=== PATIENT | female | born 1980 | race Caucasian/White ===

== ENCOUNTER → 2019-06-28 | Outpatient (CLI) | payer OTHER ==
[~2019-06-28] VITALS: Ht 172.7 cm; Wt 86.2 kg
[~2019-06-28] MED LIST: ACIPHEX 20 MG T20 MG PO; KEFLEX500 M1 PO; LAMOTRIGINE150 MG PO; VITAMIN D50000 UNIT PO; ZOVIRAX200 MG PO; ZYRTEC10 M5 PO
--- NOTE | 2019-06-30 17:06 | PATH ---
[facility] [address] [place] [address] PATHOLOGY RPT PROCEDURE Name: TAYLOR SPAIN Room #: REG [facility].#: [id number] Admission: 06/28/19 Date of : 76 Discharge: Report #: [id number] Path Case #: [id number] [facility] Accession Number: [id number] . 01 Material submitted: . colon - POLYP AT SIGMOID COLON. Modifiers: sigmoid . 01 Clinical history: . GERD, melena . 02 Diagnosis: Polyp, at sigmoid colon, endoscopic biopsy: - Hyperplastic polyp and lymphoid aggregates. - Negative for dysplasia. (IUV:pit; 06/30/2019) QTP 06/30/2019 1408 Local . 02 Electronically signed: . Ysabel Anderson MD, Pathologist NPI- [id number] . 01 Gross description: . The specimen is received in formalin, labeled "[place], polyp at sigmoid colon". Received is a segment of pale quick soft tissue measuring 0.4 cm in maximum dimensions. The specimen is submitted entirely in cassette A1. (CAA; 06/29/2019) QAC/QAC 06/29/2019 0907 Local . 02 Pathologist provided ICD-10: K63.5 . 02 CPT . 719850 Specimen Comment: A courtesy copy of this report has been sent to [phone] Specimen Comment: [phone] Specimen Comment: Report sent to and Performed at: [address], [place] [id number] MD Kurt Morrell MD Phone: [phone] Performed at: [address] [id number] MD Ysabel Anderson MD Phone: [phone]
== END | disposition home or self-care (01) ==
LOC: GI 08:48
DX: K92.1 Melena (principal); K63.5 Polyp of colon; K21.0 Gastro-esophageal reflux disease with esophagitis; K64.8 Other hemorrhoids; F32.9 Major depressive disorder, single episode, unspecified; F41.9 Anxiety disorder, unspecified; Z98.890 Other specified postprocedural states; Z79.899 Other long term (current) drug therapy; Z88.0 Allergy status to penicillin
CPT/HCPCS: 62110; 62900